=== PATIENT | male | born 1995 | race Caucasian/White ===

== ENCOUNTER 2016-06-23 19:50 | Emergency (ER) | payer OTHER ==
[~2016-06-23] VITALS: Ht 167.6 cm; Wt 60.0 kg
[2016-06-23 20:50] LABS: BASOPHILS % (AUTO) 0.6 % (0.0-2.0); HEMATOCRIT 49.7 % (41-53); HEMOGLOBIN 15.9 g/dL (13.5-17.5); LYMPHOCYTES # (AUTO) 1.6 K/uL (1.0-4.8); LYMPHOCYTES % (AUTO) 16.9 % (22.0-44.0); MEAN CORPUSCULAR HEMOGLOBIN 28.7 pg (26.0-34.0); MEAN CORPUSCULAR VOLUME 90 fL (80-100); MONOCYTES # (AUTO) 0.8 K/uL (0.1-1.0); MONOCYTES % (AUTO) 8.3 % (2.0-9.0); NEUTROPHILS # (AUTO) 6.9 K/uL (1.8-7.7); NEUTROPHILS % (AUTO) 73.2 % (40.0-70.0); PLATELET COUNT (AUTO) 395 K/uL (150-450); RED BLOOD CELL COUNT(AUTO) 5.55 MIL/uL (4.50-5.90); RED CELL DISTRIBUTION WIDTH 14.4 % (11.5-14.5); WHITE BLOOD COUNT (AUTO) 9.4 K/uL (4.5-11.0)
[2016-06-23 20:59] LABS: ANION GAP 12 mmol/L (8-16); CALCIUM, TOTAL 9.4 mg/dL (8.8-10.5); CARBON DIOXIDE 26 mmol/L (22-29); CHLORIDE 103 mmol/L (98-107); GLOMERULAR FILTR. RATE CALC > 60 mL/min (>60); SODIUM SERUM 141 mmol/L (136-145); UREA NITROGEN, BLOOD 7 mg/dL (7-18)
[2016-06-23 21:08] LABS: ALANINE AMINOTRANSFERASE 32 U/L (12-78); ALBUMIN 4.4 g/dL (3.4-5.0); ASPARTATE AMINOTRANSFERASE 17 U/L (15-37); BILIRUBIN,TOTAL 0.4 mg/dL (0.1-1.0)
[2016-06-23 23:49] VITALS: BP 120/75
== END 2016-06-23 23:52 | disposition home or self-care (01) ==
LOC: EMS 20:02
DX: F25.9 Schizoaffective disorder, unspecified (principal); F32.9 Major depressive disorder, single episode, unspecified; Z91.041 Radiographic dye allergy status; Z88.5 Allergy status to narcotic agent; Z91.013 Allergy to seafood
CPT/HCPCS: 36415; 80053; 80307; 85025; 99285; G0480

== ENCOUNTER 2017-08-07 21:51 | Inpatient (IN) | payer MEDICAID, OTHER ==
[~2017-08-07] VITALS: Ht 167.6 cm; Wt 59.1 kg
[2017-08-07 22:15] LABS: BASOPHILS % (AUTO) 1.2 % (0.0-2.0); EOSINOPHILS % (AUTO) 11.1 % (1.0-6.0); HEMATOCRIT 41.1 % (41-53); LYMPHOCYTES # (AUTO) 2.6 K/uL (1.0-4.8); LYMPHOCYTES % (AUTO) 33.7 % (22.0-44.0); MEAN CORPUSCULAR HEMOGLOBIN 29.7 pg (26.0-34.0); MEAN CORPUSCULAR HGB CONC 34.1 G/dL (31.0-37.0); MEAN CORPUSCULAR VOLUME 87 fL (80-100); MONOCYTES # (AUTO) 0.6 K/uL (0.1-1.0); NEUTROPHILS # (AUTO) 3.5 K/uL (1.8-7.7); PLATELET COUNT (AUTO) 374 K/uL (150-450); RED BLOOD CELL COUNT(AUTO) 4.71 MIL/uL (4.50-5.90); RED CELL DISTRIBUTION WIDTH 14.9 % (11.5-14.5)
[2017-08-07 22:31] LABS: ANION GAP 4 mmol/L (8-16); CALCIUM, TOTAL 8.3 mg/dL (8.8-10.5); CARBON DIOXIDE 29 mmol/L (22-29); CHLORIDE 105 mmol/L (98-107); CREATININE 0.82 mg/dL (0.60-1.30); GLOMERULAR FILTR. RATE CALC > 60 mL/min (>60); GLUCOSE,RANDOM 105 mg/dL (70-110); POTASSIUM 3.7 mmol/L (3.5-5.1); SODIUM SERUM 138 mmol/L (136-145); UREA NITROGEN, BLOOD 6 mg/dL (7-18)
[2017-08-07 22:34] LABS: AMPHET/METH SCREEN,URINE POSITIVE (NEGATIVE); BARBITURATE SCREEN, URINE NEGATIVE (NEGATIVE); BENZODIAZEPINES SCREEN,URINE NEGATIVE (NEGATIVE); CANNABINOID SCREEN,URINE POSITIVE (NEGATIVE); COCAINE SCREEN,URINE NEGATIVE (NEGATIVE); METHADONE SCREEN, URINE NEGATIVE (NEGATIVE); OPIATE SCREEN,URINE NEGATIVE (NEGATIVE); PHENCYCLIDINE SCREEN,URINE NEGATIVE (NEGATIVE)
[2017-08-07 22:38] LABS: ALANINE AMINOTRANSFERASE 28 U/L (12-78); ALKALINE PHOSPHATASE 98 U/L (46-116); ASPARTATE AMINOTRANSFERASE 21 U/L (15-37); BILIRUBIN,TOTAL 0.2 mg/dL (0.1-1.0); TOTAL PROTEIN, SERUM 6.9 g/dL (6.4-8.2)
[2017-08-07 22:43] LABS: ALBUMIN 3.4 g/dL (3.4-5.0)
[2017-08-07] MEDS ORDERED: ZOLPIDEM TARTRATE 10 MG TABLET PO PRN (23:00)
[2017-08-07] MEDS ORDERED: LORazepam 2 MG TABLET PO PRN (23:00)
[2017-08-07] MEDS ORDERED: HALOPERIDOL 5 MG TABLET PO PRN (23:00)
[2017-08-07] MEDS ORDERED: HALOPERIDOL 5 MG TABLET PO ONE (23:45)
[2017-08-07] MEDS ORDERED: DiphenhydrAMINE HCL 25 MG CAPSULE PO ONE (23:45)
[2017-08-07] MEDS ORDERED: LORazepam 1 MG TABLET PO ONE (23:45)
[2017-08-08] MEDS ORDERED: ZOLPIDEM TARTRATE 10 MG TABLET PO PRN
[2017-08-08] MEDS ORDERED: HALOPERIDOL 5 MG TABLET PO PRN
[2017-08-08] MEDS ORDERED: MAG HYDROX/AL HYDROX/SIMETH ES 30 ML SUSPENSION UDCUP PO PRN
[2017-08-08] MEDS ORDERED: MAGNESIUM HYDROXIDE SUSPENSION 30 ML UDCUP PO PRN
[2017-08-08 00:54] VITALS: BP 105/68
[2017-08-08 08:05] VITALS: BP 114/60
[2017-08-08 08:42] LABS: CHOL/HDL RATIO 2.8 (4.2-7.3)
[2017-08-08] MEDS: LORazepam 2 MG TABLET PO PRN (12:40)
[2017-08-08] MEDS: ARIPiprazole 10 MG TABLET PO SCH (13:32)
[2017-08-08] MEDS ORDERED: ACETAMINOPHEN 325 MG TABLET PO PRN ×2 (15:30)
[2017-08-08] MEDS ORDERED: IBUPROFEN 400 MG TABLET PO PRN (15:30)
[2017-08-08 16:00] VITALS: BP 111/66
[2017-08-08] MEDS: TraZODone HCL 50 MG TABLET PO SCH (20:43)
[2017-08-08] MEDS ORDERED: MIRTAZAPINE 15 MG TABLET PO SCH (21:00)
[2017-08-09 06:26] VITALS: BP 105/68
[2017-08-09 08:00] VITALS: BP 108/65
[2017-08-09 08:58] LABS: HEMOGLOBIN A1C 5.4 % (4.5-6.2)
[2017-08-09] MEDS: ARIPiprazole 10 MG TABLET PO SCH (09:32)
[2017-08-09] MEDS: LORazepam 2 MG TABLET PO PRN ×2 (09:33→20:57)
[2017-08-09 09:34] LABS: THYROID STIMULATING HORMONE 2.38 uIU/mL (0.36-3.74)
[2017-08-09 16:00] VITALS: BP 109/67
[2017-08-09] MEDS: TraZODone HCL 50 MG TABLET PO SCH (20:57)
[2017-08-09] MEDS: MIRTAZAPINE 30 MG TABLET PO SCH (20:57)
[2017-08-10 07:18] VITALS: BP 114/65
[2017-08-10 08:14] VITALS: BP 119/80
[2017-08-10] MEDS: ARIPiprazole 10 MG TABLET PO SCH (08:46)
[2017-08-10] MEDS: LORazepam 2 MG TABLET PO PRN (13:39)
[2017-08-10 16:45] VITALS: BP 102/74
[2017-08-10] MEDS: MIRTAZAPINE 30 MG TABLET PO SCH (20:37)
[2017-08-10] MEDS: TraZODone HCL 50 MG TABLET PO SCH (20:37)
[2017-08-11 01:09] VITALS: BP 110/68
[2017-08-11] MEDS ORDERED: TRAZ-144 PO (08:09)
[2017-08-11] MEDS ORDERED: ARIP10TA8 PO (08:09)
[2017-08-11] MEDS ORDERED: MIRT30 PO (08:10)
[2017-08-11 08:29] VITALS: BP 112/84
[2017-08-11] MEDS: ARIPiprazole 10 MG TABLET PO SCH (08:30)
== END 2017-08-11 12:20 | disposition home or self-care (01) | DRG 750 ==
LOC: EMS 21:52 → B3A 22:55 → B2S 08-10 12:32
PROVIDERS: ADMIT Psychiatry & Neurology Psychiatry; ATTEND Psychiatry & Neurology Psychiatry
DX: F25.0 Schizoaffective disorder, bipolar type (principal); R45.851 Suicidal ideations; Z91.19 Patient's noncompliance with other medical treatment and regimen; F15.10 Other stimulant abuse, uncomplicated; F60.3 Borderline personality disorder; G47.00 Insomnia, unspecified; F17.210 Nicotine dependence, cigarettes, uncomplicated; Z59.0 Homelessness; Z91.041 Radiographic dye allergy status; Z88.5 Allergy status to narcotic agent; Z91.013 Allergy to seafood; Z81.8 Family history of other mental and behavioral disorders; Z71.51 Drug abuse counseling and surveillance of drug abuser
CPT/HCPCS: 83036; 84443; 99285; G0480

== ENCOUNTER 2019-03-17 07:35 | Emergency (ER) | payer MEDICAID, OTHER ==
[~2019-03-17] VITALS: Ht 160 cm; Wt 70.5 kg
[~2019-03-17 07:35] MED LIST: ARIP10TA8 PO; MIRT30 PO; TRAZ-252 PO
[2019-03-17 09:05] LABS: BASOPHILS % (AUTO) 0.8 % (0.0-2.0); EOSINOPHILS % (AUTO) 2.8 % (1.0-6.0); HEMATOCRIT 45.1 % (41-53); HEMOGLOBIN 15.3 g/dL (13.5-17.5); LYMPHOCYTES % (AUTO) 19.4 % (22.0-44.0); MEAN CORPUSCULAR HGB CONC 33.9 G/dL (31.0-37.0); MEAN CORPUSCULAR VOLUME 88 fL (80-100); MONOCYTES # (AUTO) 1.2 K/uL (0.1-1.0); MONOCYTES % (AUTO) 12.3 % (2.0-9.0); NEUTROPHILS # (AUTO) 6.6 K/uL (1.8-7.7); NEUTROPHILS % (AUTO) 64.7 % (40.0-70.0); PLATELET COUNT (AUTO) 417 K/uL (150-450); RED CELL DISTRIBUTION WIDTH 14.4 % (11.5-14.5)
[2019-03-17 09:30] LABS: ALANINE AMINOTRANSFERASE 81 U/L (12-78); ALBUMIN 3.9 g/dL (3.4-5.0); ALKALINE PHOSPHATASE 105 U/L (46-116); ANION GAP 10 mmol/L (8-16); ASPARTATE AMINOTRANSFERASE 38 U/L (15-37); CALCIUM, TOTAL 8.8 mg/dL (8.8-10.5); CARBON DIOXIDE 28 mmol/L (22-29); CHLORIDE 98 mmol/L (98-107); CREATININE 0.97 mg/dL (0.60-1.30); GLOMERULAR FILTR. RATE CALC > 60 mL/min (>60); SODIUM SERUM 136 mmol/L (136-145); THYROID STIMULATING HORMONE 1.35 uIU/mL (0.36-3.74); TOTAL PROTEIN, SERUM 7.8 g/dL (6.4-8.2)
[2019-03-17 09:38] LABS: GLUCOSE,RANDOM 41 mg/dL (70-110)
[2019-03-17 09:40] LABS: UREA NITROGEN, BLOOD 18 mg/dL (7-18)
[2019-03-17 10:56] LABS: GLUCOSE,POINT OF CARE 113 MG/DL (70-110)
[2019-03-17] MEDS ORDERED: LORazepam 2 MG TABLET PO ONE (11:30)
[2019-03-17] MEDS ORDERED: POTASSIUM CHLORIDE 20 MEQ ER TABLET PO ONE (11:30)
[2019-03-17 15:31] LABS: GLUCOSE,POINT OF CARE 86 MG/DL (70-110)
[2019-03-17 16:07] VITALS: BP 110/61
== END 2019-03-17 16:30 | disposition home or self-care (01) ==
LOC: EMS 07:36
DX: F41.9 Anxiety disorder, unspecified (principal); R45.851 Suicidal ideations; F15.10 Other stimulant abuse, uncomplicated; F22 Delusional disorders; F31.9 Bipolar disorder, unspecified; F20.9 Schizophrenia, unspecified; F17.210 Nicotine dependence, cigarettes, uncomplicated; Z88.8 Allergy status to other drugs, medicaments and biological substances; Z91.013 Allergy to seafood
CPT/HCPCS: 36415; 80053; 82962; 84443; 85025; 99284; G0480

== ENCOUNTER 2019-08-22 16:01 | Inpatient (IN) | payer MEDICAID ==
[~2019-08-22] VITALS: Ht 157.5 cm; Wt 62.1 kg
[2019-08-23] VITALS: BP 114/72
[2019-08-23] MEDS: ZOLPIDEM TARTRATE 10 MG TABLET PO PRN (00:41)
[2019-08-23 08:11] VITALS: BP 102/59
[2019-08-23 16:20] VITALS: BP 107/74
[2019-08-23] MEDS: LORazepam 2 MG TABLET PO PRN (18:46)
[2019-08-23] MEDS: HALOPERIDOL 5 MG TABLET PO PRN (18:46)
[2019-08-23] MEDS ORDERED: OLANZapine 10 MG TABLET PO SCH (21:00)
[2019-08-24 06:14] VITALS: BP 110/79
[2019-08-24 08:31] LABS: HEMOGLOBIN 15.1 g/dL (13.5-17.5); MEAN CORPUSCULAR HGB CONC 33.6 G/dL (31.0-37.0); MEAN CORPUSCULAR VOLUME 92 fL (80-100); PLATELET COUNT (AUTO) 279 K/uL (150-450); RED BLOOD CELL COUNT(AUTO) 4.89 MIL/uL (4.50-5.90); RED CELL DISTRIBUTION WIDTH 14.6 % (11.5-14.5)
[2019-08-24 09:01] LABS: ALANINE AMINOTRANSFERASE 100 U/L (12-78); ALBUMIN 3.5 g/dL (3.4-5.0); ALKALINE PHOSPHATASE 76 U/L (46-116); ANION GAP 10 mmol/L (8-16); ASPARTATE AMINOTRANSFERASE 53 U/L (15-37); BILIRUBIN,TOTAL 0.2 mg/dL (0.1-1.0); CALCIUM, TOTAL 8.7 mg/dL (8.8-10.5); CARBON DIOXIDE 26 mmol/L (22-29); CHLORIDE 101 mmol/L (98-107); CHOL/HDL RATIO 3.4 (4.2-7.3); CHOLESTEROL 134 mg/dL (131-200); CREATININE 0.82 mg/dL (0.60-1.30); GLOMERULAR FILTR. RATE CALC > 60 mL/min (>60); GLUCOSE,RANDOM 69 mg/dL (70-110); HDL CHOLESTEROL 39 mg/dL (40-60); LDL CHOL (CALC.) 73 mg/dL (0-130); POTASSIUM 3.9 mmol/L (3.5-5.1); SODIUM SERUM 137 mmol/L (136-145); THYROID STIMULATING HORMONE 3.53 uIU/mL (0.36-3.74); TOTAL PROTEIN, SERUM 7.1 g/dL (6.4-8.2); TRIGLYCERIDES 108 mg/dL (15-150); UREA NITROGEN, BLOOD 13 mg/dL (7-18)
[2019-08-24 09:25] VITALS: BP 102/55
[2019-08-24 09:53] LABS: BAND NEUTROPHILS % (MANUAL) 1 % (0-5); EOSINOPHILS % (MANUAL) 6 % (1-6); LYMPHOCYTES % (MANUAL) 30 % (22-44); MONOCYTES % (MANUAL) 2 % (2-9); SEGMENTED NEUTROPHILS % 61 % (40-70)
[2019-08-24] MEDS: SERTRALINE HCL 50 MG TABLET PO SCH (13:35)
[2019-08-24 17:05] VITALS: BP 119/71
[2019-08-24] MEDS: ZOLPIDEM TARTRATE 10 MG TABLET PO PRN (20:51)
[2019-08-25 00:40] VITALS: BP 101/62
[2019-08-25] MEDS: SERTRALINE HCL 50 MG TABLET PO SCH (08:34)
[2019-08-25 09:27] VITALS: BP 114/57
[2019-08-25 16:00] VITALS: BP 119/70
[2019-08-25] MEDS: LORazepam 2 MG TABLET PO PRN (16:41)
[2019-08-25] MEDS: BACITRACIN 28.4 GM OINTMENT TP SCH (16:41)
[2019-08-25] MEDS: ZOLPIDEM TARTRATE 10 MG TABLET PO PRN (20:54)
[2019-08-26 01:02] VITALS: BP 107/63
[2019-08-26 08:28] VITALS: BP 120/70
[2019-08-26] MEDS: SERTRALINE HCL 50 MG TABLET PO SCH (08:35)
[2019-08-26] MEDS: BACITRACIN 28.4 GM OINTMENT TP SCH ×2 (08:35→16:56)
[2019-08-26] MEDS: LORazepam 2 MG TABLET PO PRN (09:15)
[2019-08-26 16:25] VITALS: BP 123/72
[2019-08-26] MEDS: HALOPERIDOL 5 MG TABLET PO PRN (18:23)
[2019-08-26] MEDS: ZOLPIDEM TARTRATE 10 MG TABLET PO PRN (20:55)
[2019-08-27 00:34] VITALS: BP 116/61
[2019-08-27 08:15] VITALS: BP 125/55
[2019-08-27] MEDS: SERTRALINE HCL 50 MG TABLET PO SCH (08:45)
[2019-08-27] MEDS: BACITRACIN 28.4 GM OINTMENT TP SCH (08:45)
[2019-08-27] MEDS ORDERED: SERT50TA12 PO (10:38)
[2019-08-27] MEDS ORDERED: OLAN10TA3 PO (10:38)
== END 2019-08-27 13:25 | disposition home or self-care (01) | DRG 885 ==
LOC: B2S 22:39
DX: F25.0 Schizoaffective disorder, bipolar type (principal); R45.851 Suicidal ideations; F12.10 Cannabis abuse, uncomplicated; G47.00 Insomnia, unspecified; T42.6X5A Adverse effect of other antiepileptic and sedative-hypnotic drugs, initial encounter; Z91.5 Personal history of self-harm
CPT/HCPCS: 84443; 85007; 87081